=== PATIENT | female | born 1945 | race Caucasian/White ===

== ENCOUNTER → 2017-07-24 | Outpatient (CLI) | payer MEDICARE, BC | LOC: RAD 09:31 | PROVIDERS: ATTEND Internal Medicine | DX: R92.8 Other abnormal and inconclusive findings on diagnostic imaging of breast (principal); R93.8 Abnormal findings on diagnostic imaging of other specified body structures; N63.20 Unspecified lump in the left breast, unspecified quadrant | CPT/HCPCS: 82565 ==

== ENCOUNTER → 2017-08-19 | Day surgery (SDC) | payer MEDICARE, BC ==
[~2017-08-19] MED LIST: LIDOCAINE 2% INJ (20 MG/ML) 20 ML MDV ONE
--- NOTE | 2017-08-22 09:41 | WOMENS IMAGING REPORT ---
EXAM DESCRIPTION: U/S BREAST BX; LEFT DIG DX MAMMO NO CHG COMPLETED DATE/TIME: 08/19/2017 2:35 pm; 08/19/2017 3:00 pm REASON FOR STUDY: UNSPECIFIED LUMP; N63.21; S/P US BX FOR CLIP PLACEMENT N63.20 N63.20 UNSPECIFIED LUMP IN THE LEFT BREAST, UNSPECIFIED QUAD N63.21 UNSPECIFIED LUMP IN THE LEFT BREAST, UPPER OUTER QU AD COMPARISON: Mammograms 06/11/2017, 06/04/2016 [facility] internal medicine TECHNIQUE: The procedure was discussed with the patient and the patient agreed to proceed. The patient was scanned and the area of interest in the 12 o'clock position 10 to 11 cm from the nipp le of the left breast was localized. This correlates with the area of concern on prior imaging studi es. This area was targeted for ultrasound-guided core biopsy. After sterile skin prep and 2.5 mL local lidocaine 1% for skin and deep tissue anesthesia, a 14 gauge coaxial core biopsy needle was used to obtain several cores of tissue from the lesion. Under ultras ound guidance, a ribbon clip was placed in the areas sampled. There were no immediate post-procedure complications. MAMMOGRAM: Post-procedure two view mammogram was acquired in the digital mammogram suite. The clip wa s in the expected location. No significant hematoma. Pathology yields a diagnosis of invasive ductal carcinoma Pathology is concordant. LIMITATIONS: None. FINDINGS: Ultrasound guided breast biopsy as described above. POST PROCEDURE MAMMOGRAMS FOR MARKER PLACEMENT: Yes IMPRESSION: ULTRASOUND-GUIDED CORE BIOPSY OF THE LEFT BREAST YIELDS A DIAGNOSIS OF INVASIVE DUCTAL C ARCINOMA BI-RADS 6 Known biopsy-proven malignancy. Appropriate action should be taken. COMMENT: COMMUNICATION: THESE RESULTS WERE DISCUSSED WITH DR. NOBLE, 08/21/2017 1400 HOURS Patient medication list reviewed: Yes- Quality ID# [id number]:Eligible professional attests to documenting i n the medical record they obtained, updated, or reviewed the patient's current medications. TECHNICAL DOCUMENTATION: JOB ID: [id number] [employer]- All Rights Reserved
== END ==
LOC: WI 12:43
PROVIDERS: ATTEND Surgery
PROC: 0HBT3ZX Excision of Right Breast, Percutaneous Approach, Diagnostic (ICD-10-PCS; principal; 2017-08-19)
DX: C50.912 Malignant neoplasm of unspecified site of left female breast (principal); Z17.0 Estrogen receptor positive status [ER+]
CPT/HCPCS: 88342 ×2; 88341 ×2; 88305 ×2; 19083; J3490

== ENCOUNTER → 2018-06-03 | Outpatient (CLI) | payer MEDICARE, BC ==
--- NOTE | 2018-06-03 15:19 | WOMENS IMAGING REPORT ---
"EXAM DESCRIPTION: 3D DX MAMMO BILAT COMPLETED DATE/TIME: 06/03/2018 12:06 pm REASON FOR STUDY: BILATERAL DIAGNOSTIC MAMMO 3D/C50.919 C50.919 MALIGNANT NEOPLASM OF UNSP SITE OF UNSPECIFIED FEMAL COMPARISON: 08/19/2017, 06/11/2017, 06/04/2016 TECHNIQUE: Standard craniocaudal and mediolateral oblique views of each breast recorded using digita l acquisition and breast tomosynthesis. Additional left breast 90 mediolateral view and exaggerated craniocaudad view LIMITATIONS: None. FINDINGS: RIGHT BREAST MASSES: No suspicious masses. CALCIFICATIONS: No new or suspicious calcifications. ARCHITECTURAL DISTORTION: Postoperative architectural distortion left breast 12 o'clock position with multiple surgical clips post lumpectomy. DEVELOPING DENSITY: None. ASYMMETRY: None noted. OTHER: No other significant findings. LEFT BREAST MASSES: No suspicious masses. CALCIFICATIONS: No new or suspicious calcifications. ARCHITECTURAL DISTORTION: None. DEVELOPING DENSITY: None. ASYMMETRY: None noted. OTHER: Old right breast stereotactic biopsy clip laterally Read with the assistance of CAD: .[facility] - R2 Cenova Version 1.3 .[facility] Imaging - R2 Cenova Version 1.3 .[facility] Imaging - R2 Cenova Version 2.4 .[facility] [place] - R2 Cenova Version 2.4 .[facility] - R2 Head Rose Grower Version 9.2 IMPRESSION: No mammographic or tomosynthesis evidence for malignancy bilaterally. Post therapeutic changes bilaterally. BREAST DENSITY: b. There are scattered areas of fibroglandular density. BIRAD: 2 Benign findings. RECOMMENDATION: RECOMMENDED FOLLOW UP: Please continue yearly bilateral screening mammography/ tomos ynthesis in May 2019 SPECIFIC INTERVENTION/IMAGING/CONSULTATION RECOMMENDED:No additional intervention/ imaging/consultati on needed at this time. COMMUNICATION:The negative/benign results were communicated to the patient. COMMENT: The patient has been notified of the results by letter per SA requirements. Additional no tification policies are in place for contacting patient with suspicious or incomplete findings. Quality ID #[id number]: The [employer] recommends an annual screening mammogram for women aged 40 years or over. This facility utilizes a reminder system to ensure that all patients receive reminder letters, and/or direct phone calls for appointments. This includes reminders for routine scr eening mammograms, diagnostic mammograms, or other Breast Imaging Interventions when appropriate. Th is patient will be placed in the appropriate reminder system. The [employer] (ACR) has developed recommendations for screening MRI of the breast s in certain patient populations, to be used in conjunction with mammography. Breast MRI surveillanc e may be appropriate for women with more than 20% lifetime risk of developing breast cancer as deter mined by genetic testing, significant family history of the disease, or history of mantle radiation f or Hodgkins Disease. ACR Practice Guidelines 2008. DBT Technology DBT is a type of tomographic mammography. With conventional mammography, overlapping breast tissue ma y make lesions difficult to detect, even with good compression. DBT uses an x-ray tube that rotates a round the breast, taking images at different angles. These images are then combined to create thin sl ices of the breast that the radiologist can view as a 3D reconstruction. The Cubito unit can perform full-field digital mammograms (2D imaging); or DBT (3D imaging); or both, in a combination mode that quickly performs both the mammogram and the tomosynthesis scan while the breast is still compressed. PQRS 6045F: Fluoroscopic imaging is not utilized for breast tomosynthesis. TECHNICAL DOCUMENTATION: FINDING NUMBER: (1) ASSESSMENT: (1) JOB ID: [id number] [employer] | [employer]- All Rights Reserved Reading location - IP/workstation name: [email or web address]"
== END ==
LOC: WI 11:16
PROVIDERS: ATTEND Surgery
DX: C50.912 Malignant neoplasm of unspecified site of left female breast (principal)
CPT/HCPCS: 77066; G0279; 77062

== ENCOUNTER → 2018-07-10 | Outpatient (CLI) | payer MEDICARE, BC ==
--- NOTE | 2018-07-10 11:15 | WOMENS IMAGING REPORT ---
EXAM DESCRIPTION: BONE DENSITY HIP/SPINE COMPLETED DATE/TIME: 07/10/2018 10:34 am REASON FOR STUDY: M81.0 M81.0 AGE-RELATED OSTEOPOROSIS W/O CURRENT PATHOLOGICAL FRAC COMPARISON: None. TECHNIQUE: Dual-Energy X-ray Absorptiometry (DEXA) of the AP Spine and Hip. LIMITATIONS: None. FINDINGS: LUMBAR SPINE: The bone mineral density (BMD) measured from L1-L4 in the AP projection correlates with a T-score of -0.4, which is normal as defined by the World Health Organization. HIP: The bone mineral density (BMD) measured in the left hip correlates with a T-score of -2.1, which is o steopenia as defined by the World Health Organization. IMPRESSION: 1. LUMBAR SPINE: NORMAL. 2. HIP: OSTEOPENIA. COMMENT: The World Health Organization defines low BMD as follows: T-score: Normal: Greater than -1.0 Osteopenia: Between -1.0 and -2.5 Osteoporosis: Less than -2.5 without fractures Established osteoporosis: Less than -2.5 with fractures In general, you may wish to consider: Diagnosis Treatment Follow-up DEXA Normal BMD Prevention 2-3 years Osteopenia Prevention/Therapy 1-2 years Osteoporosis Therapy Yearly TECHNICAL DOCUMENTATION: JOB ID: [id number] [employer]- All Rights Reserved Reading location - IP/workstation name: [email or web address]
== END ==
LOC: WI 10:40
PROVIDERS: ATTEND Internal Medicine Hematology & Oncology
DX: M81.0 Age-related osteoporosis without current pathological fracture (principal)
CPT/HCPCS: 77080

== ENCOUNTER → 2018-12-08 | Outpatient (CLI) | payer MEDICARE, BC ==
--- NOTE | 2018-12-08 10:19 | WOMENS IMAGING REPORT ---
EXAM DESCRIPTION: U/S ABDOMEN LIMITED COMPLETED DATE/TIME: 12/08/2018 10:07 am REASON FOR STUDY: K80.20 CALCULUS OF GALLBLADDER WITHOUT CHOLECYSTITIS, R10.11 RIGHT UPPER QU K80.20 CALCULUS OF GALLBLADDER W/O CHOLECYSTITIS W/O OBSTRUC R10.11 RIGHT UPPER QUADRANT PAIN COMPARISON: None. TECHNIQUE: Dynamic and static grayscale images acquired of the abdomen and recorded on PACS. Additio nal selected color Doppler and spectral images recorded. LIMITATIONS: Limited by body habitus. FINDINGS: PANCREAS: The head and body of the pancreas are of normal echogenicity. The tail is obsc ured by overlying bowel gas. LIVER: Fatty liver. The liver measures 20.0 cm in length, hepatomegaly. LIVER VASCULATURE: Normal directional flow of the main portal vein. Suboptimal visualization of the hepatic veins due to overlying bowel gas. GALLBLADDER: Gallstone. The gallbladder wall measures 2.3 mm, normal wall thickness. No pericholecy stic fluid. ULTRASOUND-DETECTED PANG'S SIGN: Negative. INTRAHEPATIC DUCTS AND COMMON DUCT: CBD measures 3.7 mm in diameter, normal. The intrahepatic ducts normal caliber. No filling defects. INFERIOR VENA CAVA: Normal flow. AORTA: Suboptimal visualization due to overlying bowel gas. RIGHT KIDNEY: The right kidney measures 11.3 x 5.0 x 5.0 cm, normal size. Normal echogenicity. A 9 mm x 9 mm cyst. No hydronephrosis. No calcifications. PERITONEAL AND RIGHT PLEURAL SPACE: No ascites or effusions. OTHER: No other significant findings. IMPRESSION: 1. Fatty liver. Hepatomegaly. 2. Suboptimal visualization of the pancreatic tail, hepatic veins and abdominal aorta due to overlyi ng bowel gas. 3. Gallstone. TECHNICAL DOCUMENTATION: JOB ID: [id number]- All Rights Reserved Reading location - IP/workstation name: [email or web address]
== END ==
LOC: WI 08:59
PROVIDERS: ATTEND Internal Medicine
DX: K80.20 Calculus of gallbladder without cholecystitis without obstruction (principal); R10.11 Right upper quadrant pain
CPT/HCPCS: 76705

== ENCOUNTER 2019-05-21 11:45 | Inpatient (IN) | payer MEDICARE, BC ==
[2019-05-21] MEDS ORDERED: DILTIAZEM HCL INJ 25 MG/5 ML VIAL IV ONE (12:04)
--- NOTE | 2019-05-21 12:04 | ER Document Report ---
ED Medical Screen (RME) - General Chief Complaint: Breathing Difficulty Stated Complaint: DIFFICULTY BREATHING/RAPID HEART RATE Time Seen by Provider: 05/21/19 11:47 Primary Care Provider: MANNY HERNANDEZ MD [Primary Care Provider] - Follow up as needed TRAVEL OUTSIDE OF THE [place] IN LAST 30 DAYS: No - HPI Notes: 05/21/19 73-year-old female to the emergency department with complaints of atrial fib and shortness of breath. She states she has been having progressively worsening shortness of breath for the past several weeks. She saw her optical glass silverer today and was found to be in atrial fibrillation rapid ventricular rate. Today in the emergency department in triage she had a heart rate of 135 and an EKG does show atrial fibrillation RVR. She denies any chest pain, fevers, chills. She states that she is feeling a little nervous but otherwise denies any other symptoms. Performed a brief medical screening exam on patient. Have gone ahead and ordered labs, imaging, medications for her. She will need to have further evaluation and management by main side ER provider. Advised Dr. Bill of order of 20 mg IV diltiazem push and then infusion of 10 mg of Cardizem to be started. - Related Data Allergies/Adverse Reactions: amoxicillin trihydrate [From Augmentin] Allergy (Unknown, Verified 05/21/19 12:00) Potassium Clavulanate * [From Augmentin] Allergy (Unknown, Verified 05/21/19 12:00) Past Medical History - Past Medical History Cardiac Medical History: Reports: Hx Hypertension Endocrine Medical History: Reports: Hx Diabetes Mellitus Type 2 Past Surgical History: Reports: Hx Appendectomy, Hx Hysterectomy - Immunizations Hx Diphtheria, Pertussis, Tetanus Vaccination: Yes Doctor's Discharge - Discharge Referrals: MANNY HERNANDEZ MD [Primary Care Provider] - Follow up as needed
[2019-05-21 12:37] LABS: ABSOLUTE EOSINOPHILS # (AUTO) 0.1 10^3/uL (0.0-0.6); ABSOLUTE MONOCYTES (AUTO) 0.5 10^3/uL (0.1-1.4); ABSOLUTE NEUT (AUTO) 3.5 10^3/uL (1.7-8.2); BASOPHILS % (AUTO) 0.8 % (0-2); EOSINOPHILS % (AUTO) 1.4 % (0-6); HEMATOCRIT 44.3 % (36.0-47.0); HEMOGLOBIN 14.6 g/dL (12.0-15.5); LYMPHOCYTES % (AUTO) 19.3 % (13-45); MEAN CORPUSCULAR HEMOGLOBIN 28.8 pg (27.0-33.4); MEAN CORPUSCULAR VOLUME 87 fl (80-97); MONOCYTES % (AUTO) 10.5 % (3-13); PLATELET COUNT 142 10^3/uL (150-450); RED BLOOD COUNT 5.09 10^6/uL (3.72-5.28); RED CELL DISTRIBUTION WIDTH 13.8 % (11.5-14.0); TOTAL CELLS COUNTED % (AUTO) 100 %; WHITE BLOOD COUNT 5.1 10^3/uL (4.0-10.5)
[2019-05-21] MEDS: DILTIAZEM HCL/D5W 125 MG/125 ML RTUINJ IV PRN (12:39)
--- NOTE | 2019-05-21 12:41 | ER Document Report ---
ED Respiratory Problem - General Chief Complaint: New Onset A-Fib Stated Complaint: DIFFICULTY BREATHING/RAPID HEART RATE Time Seen by Provider: 05/21/19 11:47 Notes: Patient is a 73-year-old female presents to the emergency department for shor tness of breath. Patient voices she has had shortness of breath for the last month. States is more so when she exerts herself. Patient states on Saturday she did go to her primary care provider. Her primary care provider told her that she may have an irregular heartbeat and she should follow-up with cardiology. States she went to her appeals court associate justice Dr. Puente this morning. States she was undergoing an echocardiogram Dr. Smith selected and told her to present to the emergency room. Patient voices no chest pain, pressure, heaviness. States She just feels short of breath. Patient does wear CPAP at night. Past medical history: Hypertension, diabetes, hyperlipidemia Medications: Losartan, Januvia, glyburide, allopurinol, atenolol, Lasix, metformin, aspirin, magnesium Allergies: Augmentin TRAVEL OUTSIDE OF THE [place] IN LAST 30 DAYS: No - Related Data Allergies/Adverse Reactions: amoxicillin trihydrate [From Augmentin] Allergy (Unknown, Verified 05/21/19 12:00) Potassium Clavulanate * [From Augmentin] Allergy (Unknown, Verified 05/21/19 12:00) Past Medical History - General Information source: Patient - Social History Smoking Status: Never Smoker Chew tobacco use (# tins/day): No Frequency of alcohol use: None Family History: Reviewed & Not Pertinent Patient has suicidal ideation: No Patient has homicidal ideation: No - Past Medical History Cardiac Medical History: Reports: Hx Hypertension Endocrine Medical History: Reports: Hx Diabetes Mellitus Type 2 Past Surgical History: Reports: Hx Appendectomy, Hx Hysterectomy - Immunizations Hx Diphtheria, Pertussis, Tetanus Vaccination: Yes Review of Systems - Review of Systems Constitutional: denies: Fever EENT: No symptoms reported Cardiovascular: See HPI Respiratory: See HPI Gastrointestinal: No symptoms reported Genitourinary: No symptoms reported Female Genitourinary: No symptoms reported Musculoskeletal: No symptoms reported Skin: No symptoms reported Hematologic/Lymphatic: No symptoms reported Neurological/Psychological: No symptoms reported Physical Exam - Vital signs Vitals: Temp Pulse Resp BP Pulse Ox 98.4 F 135 H 20 150/98 H 95 05/21/19 11:58 05/21/19 11:58 05/21/19 11:58 05/21/19 11:58 05/21/19 11:58 - Notes Notes: GENERAL: Alert, interacts well. No acute distress. HEAD: Normocephalic, atraumatic. EYES: Pupils equal, round, and reactive to light. Extraocular movements intact. ENT: Oral mucosa moist, tongue midline. NECK: Full range of motion. Supple. Trachea midline. LUNGS: Clear to auscultation bilaterally, no wheezes, rales, or rhonchi. No respiratory distress. HEART: Irregularly irregular rate and rhythm. ABDOMEN: Soft, non-tender. Non-distended. Bowel sounds present in all 4 quadrants. EXTREMITIES: Moves all 4 extremities spontaneously. No edema, normal radial and dorsalis pedis pulses bilaterally. No cyanosis. BACK: no cervical, thoracic, lumbar midline tenderness. No saddle anesthesia, normal distal neurovascular exam. NEUROLOGICAL: Alert and oriented x3. Normal speech. cranial nerves II through X II grossly intact PSYCH: Normal affect, normal mood. SKIN: Warm, dry, normal turgor. No rashes or lesions noted. Course - Re-evaluation Re-evalutation: 05/21/19 14:12 After initial Cardizem bolus patient's blood pressure did go down to the 100 systolic. She was started on a 5mg/hr Cardizem drip. Patient's heart rate has now fluctuated back up to 1 teens to 120s. Blood pressure 125/85, Cardizem drip moved up to 10mg/hr. I discussed this case with Inez Arnold, nurse practitioner who will admit the patient to IMCU. Patient voices she overall feels a lot better, denies any respiratory distress at this time. Continues to deny any chest pain or pressure. Repeat EKG continues to show atrial fibrillation rate of 116, QTc 467, no ST segment changes noted. - Vital Signs Vital signs: Temp Pulse Resp BP Pulse Ox 97.5 F 98 24 H 100/72 99 05/21/19 20:26 05/21/19 21:46 05/21/19 20:26 05/21/19 21:46 05/21/19 20:26 - Laboratory Result Diagrams: 05/21/19 12:25 05/21/19 12:25 Laboratory results interpreted by me: 05/21/19 05/21/19 05/21/19 12:25 12:25 12:25 Plt Count 142 L Est GFR (MDRD) Non-Af 59 L Glucose 167 H Calcium 10.5 H AST 65 H NT-Pro-B Natriuret Pep 1730 H Urine Protein Urine Blood Ur Leukocyte Esterase 05/21/19 14:20 Plt Count Est GFR (MDRD) Non-Af Glucose Calcium AST NT-Pro-B Natriuret Pep Urine Protein 100 H Urine Blood LARGE H Ur Leukocyte Esterase MODERATE H Discharge - Discharge Clinical Impression: Atrial fibrillation with RVR Condition: Stable Disposition: ADMITTED INPATIENT Admitting Provider: [place] (Hospitalist) - Inez Arnold NP Unit Admitted: IMCU
[2019-05-21 12:58] LABS: ALBUMIN 4.2 g/dL (3.5-5.0); ALKALINE PHOSPHATASE 78 U/L (38-126); ANION GAP 9 (5-19); ASPARTATE AMINO TRANSFERASE 65 U/L (14-36); BILIRUBIN,DIRECT 0.2 mg/dL (0.0-0.4); BILIRUBIN,TOTAL 0.7 mg/dL (0.2-1.3); BLOOD UREA NITROGEN 20 mg/dL (7-20); CALCIUM 10.5 mg/dL (8.4-10.2); CARBON DIOXIDE 30 mmol/L (22-30); CHLORIDE 103 mmol/L (98-107); GLUCOSE 167 mg/dL (75-110); POTASSIUM 4.5 mmol/L (3.6-5.0)
[2019-05-21 13:10] LABS: NT PRO BNP 1730 pg/mL (<125)
[2019-05-21 13:13] LABS: TROPONIN I < 0.012 ng/mL
--- NOTE | 2019-05-21 13:40 | RADIOLOGY REPORT (SQ) ---
EXAM DESCRIPTION: CHEST SINGLE VIEW COMPLETED DATE/TIME: 05/21/2019 1:16 pm REASON FOR STUDY: SOB COMPARISON: None. EXAM PARAMETERS: NUMBER OF VIEWS: One view. TECHNIQUE: Single frontal radiographic view of the chest acquired. RADIATION DOSE: NA LIMITATIONS: AP portable film in morbidly obese patient FINDINGS: LUNGS AND PLEURA: Minimal right basilar bandlike atelectasis. No fluffy alveolar infiltrates worrisome for pulmonary edema or pneumonia. No pleural effusion. No pneumothorax. MEDIASTINUM AND HILAR STRUCTURES: No masses. Contour normal. HEART AND VASCULAR STRUCTURES: Borderline cardiomegaly BONES: No acute findings. HARDWARE: Surgical clips left breast OTHER: No other significant finding. IMPRESSION: Right basilar atelectasis TECHNICAL DOCUMENTATION: JOB ID: [id number] [employer]- All Rights Reserved Reading location - IP/workstation name: [email or web address]
--- NOTE | 2019-05-21 14:01 | RADIOLOGY REPORT (SQ) ---
EXAM DESCRIPTION: CTA CHEST COMPLETED DATE/TIME: 05/21/2019 1:48 pm REASON FOR STUDY: sob new onset a-fib COMPARISON: None. TECHNIQUE: CT scan of the chest performed using helical scanning technique with dynamic intravenous contrast injection. Images reviewed with lung, soft tissue and bone windows. Reconstructed coronal and sagittal MPR images reviewed. Additional 3 dimensional post-processing performed to develop Maximal Intensity Projection images (CO P). All images stored on PACS. All CT scanners at this facility use dose modulation, iterative reconstruction, and/or weight based d osing when appropriate to reduce radiation dose to as low as reasonably achievable (ALARA). [facility]: Dose Right [facility]: CareDose [facility]: Dose Right [facility]: Teradose 4D [facility]: ID [employer] CONTRAST TYPE AND DOSE: contrast/concentration: Isovue 350.00 mg/ml; Total Contrast Delivered: 71.0 ml; Total Saline Delivered: 70.0 ml Contrast bolus optimized for the pulmonary arteries. Not diagnostic for the aorta. RENAL FUNCTION: GFR > 60. RADIATION DOSE: CT Rad equipment meets quality standard of care and radiation dose reduction techniq ues were employed. CTDIvol: 9.9 - 35.6 mGy. DLP: 1234 mGy-cm. . LIMITATIONS: None. FINDINGS: LUNGS AND PLEURA: There is a bandlike although somewhat nodular opacity of the lingula soren suring approximately 9 mm in short axis (series 3, image 51). No pleural effusions or pleural calcif ications. AORTA AND GREAT VESSELS: No aneurysm. Contrast bolus not optimized for the aorta. HEART: No pericardial effusion. No significant coronary artery calcifications. PULMONARY ARTERIES: No emboli visualized in the main pulmonary arteries or the segmental branches. HILAR AND MEDIASTINAL STRUCTURES: No identified masses or abnormal nodes. HARDWARE: None in the chest. UPPER ABDOMEN: There is a large calculus, partially imaged within the left renal pelvis measuring at least 1.2 cm (series 3, image 121). THYROID AND OTHER SOFT TISSUES: No masses. No adenopathy. BONES: No acute or significant finding. 3D MIPS: Confirm above findings. OTHER: No other significant finding. IMPRESSION: 1. Negative examination for pulmonary embolism. 2. There is a bandlike although somewhat nodular opacity of the lingula measuring approximately 9 mm in short axis (series 3, image 51). This may reflect scarring or atelectasis. Recommend follow-up C T in 3 months to ensure stability or resolution. 3. There is a large calculus, partially imaged within the left renal pelvis measuring at least 1.2 cm (series 3, image 121). COMMENT: Quality ID # [id number]: Final reports with documentation of one or more dose reduction techniques (e.g., Automated exposure control, adjustment of the mA and/or kV according to patient size, use of iterative reconstruction technique) TECHNICAL DOCUMENTATION: JOB ID: [id number] [employer]- All Rights Reserved Reading location - IP/workstation name: [email or web address]
[2019-05-21 14:39] LABS: APPEARANCE,URINE SLIGHTLY-CLOUDY; BILIRUBIN,URINE NEGATIVE (NEGATIVE); GLUCOSE, URINE NEGATIVE (NEGATIVE); KETONES,URINE NEGATIVE (NEGATIVE); LEUKOCYTE ESTERASE,URINE MODERATE (NEGATIVE); NITRITE,URINE NEGATIVE (NEGATIVE); PROTEIN,URINE 100 mg/dL (NEGATIVE); URINE SPECIFIC GRAVITY 1.056; UROBILINOGEN,URINE NEGATIVE mg/dL (<2.0)
[2019-05-21 14:40] LABS: COLOR,URINE DARK YELLOW
[2019-05-21] MEDS ORDERED: ACETAMINOPHEN 325 MG TABLET PO PRN (16:16)
[2019-05-21] MEDS ORDERED: ONDANSETRON HCL INJ/PF 4 MG/2 ML SDV IV PRN (16:16)
[2019-05-21] MEDS ORDERED: MAG HYDROX/AL HYDROX/SIMETH SUSP 30 ML UDCUP PO PRN (16:16)
[2019-05-21] MEDS ORDERED: DILTIAZEM HCL/D5W 125 MG/125 ML RTUINJ IV PRN (16:21)
[2019-05-21] MEDS ORDERED: GLUCAGON,HUMAN RECOMB 1 MG INJ IM PRN (16:23)
[2019-05-21] MEDS ORDERED: DEXTROSE 40% GEL 15 GM TUBE PO PRN ×2 (16:23)
[2019-05-21] MEDS ORDERED: DEXTROSE 50%-WATER 25 GM/50 ML DISP.SYRIN IV PRN ×2 (16:23)
[2019-05-21] MEDS: NORMAL SALINE 1000 ML 1,000 ML IV PRN (16:47)
--- NOTE | 2019-05-21 16:49 | PDOC H&P ---
History of Present Illness Admission Date/PCP: 05/21/19 14:41 MANNY HERNANDEZ MD Patient complains of: dyspnea on exertion History of Present Illness: GRISEL ANDRES is a 73 year old female with a past medical history of hypertension, DM 2, breast cancer, and obesity who presented from Dr. Puente's office for atrial fibrillation with RVR. The patient had recently been referred to Dr. Hernandez for new diagnosis of atrial fibrillation and was at the office today for an echocardiogram when it was found that her heart rate was in the 150s. Evaluation in the emergency department demonstrated tachycardia, A. fib with RVR on EKG, benign laboratory evaluation other than urinary tract infection by urinalysis, and a CTA that was negative for acute findings. Patient was provided a diltiazem bolus and started on a drip with reduction of her heart rate to the 120s. Was then referred to the hospitalist service for admission and management of the above-stated complaints and findings. Past Medical History Cardiac Medical History: Reports: Atrial Fibrillation, Hypertension Endocrine Medical History: Reports: Diabetes Mellitus Type 2, Obesity Malignancy Medical History: Reports: Breast Cancer Psychiatric Medical History: Reports: None Hematology: Reports: None Infectious Medical History: Reports: None Past Surgical History Past Surgical History: Reports: Appendectomy, Hysterectomy Social History Information Source: Patient Lives with: Alone Smoking Status: Never Smoker Electronic Cigarette use?: No Frequency of Alcohol Use: Rare Drugs: None Hx Prescription Drug Abuse: No - Advance Directive Resuscitation Status: Full Code Family History Family History: Reviewed & Not Pertinent Parental Family History Reviewed: Yes Children Family History Reviewed: Yes Sibling(s) Family History Reviewed.: Yes Medication/Allergy Home Medications: Allopurinol [Zyloprim 100 mg Tablet] 200 mg PO DAILY 05/21/19 Anastrozole [Arimidex 1 mg Tablet] 1 mg PO DAILY 05/21/19 Aspirin [Aspirin 325 mg Tablet] 325 mg PO DAILY 05/21/19 Atenolol [Tenormin 50 mg Tablet] 50 mg PO Q12 05/21/19 Cetirizine HCl [Zyrtec 10 mg Tablet] 10 mg PO DAILY 05/21/19 Cholecalciferol (Vitamin D3) [Vitamin D3 2000 unit Tablet] 2,000 unit PO DAILY 05/21/19 Furosemide [Lasix 40 mg Tablet] 40 mg PO DAILY 05/21/19 Glyburide [Diabeta 5 mg Tablet] 5 mg PO DAILY 05/21/19 Losartan Potassium [Cozaar 100 mg Tablet] 100 mg PO DAILY 05/21/19 Magnesium Oxide [Magnesium] 500 mg PO DAILY 05/21/19 Metformin HCl [Metformin HCl ER] 1,000 mg PO DAILY 05/21/19 Multivitamin [Multiple Vitamins] 1 each PO DAILY 05/21/19 Potassium Chloride [Klor-Con 10 Meq Capsule ER] 10 meq PO DAILY 05/21/19 Sitagliptin Phosphate [Januvia] 100 mg PO DAILY 05/21/19 Allergies/Adverse Reactions: amoxicillin trihydrate [From Augmentin] Allergy (Unknown, Verified 05/21/19 12:00) Potassium Clavulanate * [From Augmentin] Allergy (Unknown, Verified 05/21/19 12:00) Review of Systems Constitutional: PRESENT: fatigue. ABSENT: chills, fever(s), headache(s), weight gain, weight loss Eyes: ABSENT: visual disturbances Ears: ABSENT: hearing changes Cardiovascular: PRESENT: dyspnea on exertion, edema. ABSENT: chest pain, orthropnea, palpitations Respiratory: ABSENT: cough, hemoptysis Gastrointestinal: ABSENT: abdominal pain, constipation, diarrhea, hematemesis, hematochezia, nausea, vomiting Genitourinary: ABSENT: dysuria, hematuria Musculoskeletal: ABSENT: joint swelling Integumentary: ABSENT: rash, wounds Neurological: ABSENT: abnormal gait, abnormal speech, confusion, dizziness, focal weakness, syncope Psychiatric: ABSENT: anxiety, depression, homidical ideation, suicidal ideation Endocrine: ABSENT: cold intolerance, heat intolerance, polydipsia, polyuria Hematologic/Lymphatic: ABSENT: easy bleeding, easy bruising Physical Exam Vital Signs: Temp Pulse Resp BP Pulse Ox 98.6 F 133 H 16 124/90 H 100 05/21/19 15:57 05/21/19 15:57 05/21/19 15:57 05/21/19 15:57 05/21/19 15:57 Intake & Output 05/20/19 05/21/19 05/22/19 06:59 06:59 06:59 Intake Total 22 Balance 22 Weight 111 kg General appearance: PRESENT: no acute distress, cooperative, morbidly obese, well-developed, well-nourished Head exam: PRESENT: atraumatic, normocephalic Eye exam: PRESENT: conjunctiva pink, EOMI, PERRLA. ABSENT: scleral icterus Ear exam: PRESENT: normal external ear exam Mouth exam: PRESENT: moist, tongue midline Neck exam: ABSENT: carotid bruit, JVD, lymphadenopathy, thyromegaly Respiratory exam: PRESENT: clear to auscultation aldair, symmetrical, unlabored. ABSENT: rales, rhonchi, wheezes Cardiovascular exam: PRESENT: +S1, +S2. ABSENT: diastolic murmur, rubs, systolic murmur Pulses: PRESENT: normal dorsalis pedis pul Vascular exam: PRESENT: normal capillary refill GI/Abdominal exam: PRESENT: normal bowel sounds, soft. ABSENT: distended, guarding, mass, organolmegaly, rebound, tenderness Rectal exam: PRESENT: deferred Extremities exam: PRESENT: full ROM, +2 edema - pitting, BLE. ABSENT: calf ten derness, clubbing, pedal edema Neurological exam: PRESENT: alert, awake, oriented to person, oriented to place, oriented to time, oriented to situation, CN II-XII grossly intact. ABSENT: motor sensory deficit Psychiatric exam: PRESENT: appropriate affect, normal mood. ABSENT: homicidal ideation, suicidal ideation Skin exam: PRESENT: dry, intact, warm. ABSENT: cyanosis, rash Results Laboratory Results: 05/21/19 12:25 05/21/19 12:25 05/21/19 05/21/19 05/21/19 12:25 12:25 14:20 WBC 5.1 RBC 5.09 Hgb 14.6 Hct 44.3 MCV 87 MCH 28.8 MCHC 33.0 RDW 13.8 Plt Count 142 L Seg Neutrophils % 68.0 Sodium 141.8 Potassium 4.5 Chloride 103 Carbon Dioxide 30 Anion Gap 9 BUN 20 Creatinine 0.93 Est GFR ( Amer) > 60 Glucose 167 H Calcium 10.5 H Magnesium 2.1 Total Bilirubin 0.7 AST 65 H Alkaline Phosphatase 78 Total Protein 7.0 Albumin 4.2 Urine Color DARK YELLOW Urine Appearance SLIGHTLY-CLOUDY Urine pH 6.0 Ur Specific Morris 1.056 Urine Protein 100 H Urine Glucose (UA) NEGATIVE Urine Ketones NEGATIVE Urine Blood LARGE H Urine Nitrite NEGATIVE Ur Leukocyte Esterase MODERATE H Urine WBC (Auto) 58 Urine RBC (Auto) >182 05/21/19 12:25 Troponin I < 0.012 NT-Pro-B Natriuret Pep 1730 H Impressions: Chest X-Ray 05/21/19 11:48 IMPRESSION: Right basilar atelectasis Chest/Abdomen CTA 05/21/19 12:24 IMPRESSION: 1. Negative examination for pulmonary embolism. 2. There is a bandlike although somewhat nodular opacity of the lingula measuring approximately 9 mm in short axis (series 3, image 51). This may reflect scarring or atelectasis. Recommend follow-up CT in 3 months to ensure stability or resolution. 3. There is a large calculus, partially imaged within the left renal pelvis measuring at least 1.2 cm (series 3, image 121). Assessment and Plan - Diagnosis (1) Atrial fibrillation with RVR Is this a current diagnosis for this admission?: Yes Plan: Patient is admitted to [facility] on continuous cardiac telemetry. Continue IV diltiazem gtt; titrate to effect. Discussed chronic anticoagulation; patient interested in Eliquis. Will start 5 mg BID. Continue home dose atenolol. TSH pending. Follow up with cardiology, Dr. Smith, closely following discharge. 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 Hold metformin while admitted. Consistent carb diet. Accu-Cheks before meals and at bedtime with Humalog for sliding scale coverage. Hypoglycemia protocol in place. (3) HTN (hypertension) Is this a current diagnosis for this admission?: Yes Plan: Diltiazem as above. Continue home dose losartan and atenolol. Cardiac diet. (4) Obesities, morbid Is this a current diagnosis for this admission?: Yes Plan: BMI 47.8 Consistent carb/cardiac diet. Dietary discretion and lifestyle modification encouraged. - Time Time Spent with patient: 35 or more minutes Medications reviewed and adjusted accordingly: Yes Anticipated discharge: Home Within: within 24 hours
[2019-05-21] MEDS: APIXABAN 5 MG TABLET PO SCH (17:41)
[2019-05-21] MEDS: CEFTRIAXONE 1 GM/D5W RTU 1 GM/50 ML RTUPB IV SCH (17:43)
--- NOTE | 2019-05-21 17:55 | EKG REPORT ---
SEVERITY:- ABNORMAL ECG - ATRIAL FIBRILLATION VENTRICULAR PREMATURE COMPLEX MARKEDLY POSTERIOR QRS AXIS LOW VOLTAGE IN FRONTAL LEADS CONSIDER INFERIOR INFARCT : Confirmed by: Raman Nelson MD 21-May-2019 17:54:27
--- NOTE | 2019-05-21 17:56 | EKG REPORT ---
SEVERITY:- ABNORMAL ECG - ATRIAL FIBRILLATION LEFT AXIS DEVIATION LOW VOLTAGE IN FRONTAL LEADS CONSIDER OLD INFERIOR OR. : Confirmed by: Raman Nelson MD 21-May-2019 17:55:26
[2019-05-21] MEDS: INSULIN LISPRO 100 UNIT/ML 3 ML VIAL SUBCUT SCH (21:32)
[2019-05-21] MEDS: ATENOLOL 50 MG TABLET PO SCH (21:43)
[2019-05-22] MEDS: DILTIAZEM HCL/D5W 125 MG/125 ML RTUINJ IV PRN (01:38)
[2019-05-22] MEDS: NORMAL SALINE 1000 ML 1,000 ML IV PRN (02:49)
[2019-05-22] MEDS: ALPRAZOLAM 0.25 MG TABLET PO PRN (02:55)
[2019-05-22 06:40] LABS: ABSOLUTE EOSINOPHILS # (AUTO) 0.1 10^3/uL (0.0-0.6); ABSOLUTE LYMPHOCYTES (AUTO) 1.2 10^3/uL (0.5-4.7); ABSOLUTE MONOCYTES (AUTO) 0.6 10^3/uL (0.1-1.4); BASOPHILS % (AUTO) 0.7 % (0-2); EOSINOPHILS % (AUTO) 1.9 % (0-6); HEMATOCRIT 44.5 % (36.0-47.0); HEMOGLOBIN 14.8 g/dL (12.0-15.5); LYMPHOCYTES % (AUTO) 20.1 % (13-45); MEAN CORPUSCULAR HEMOGLOBIN 28.9 pg (27.0-33.4); MEAN CORPUSCULAR HGB CONC 33.2 g/dL (32.0-36.0); MEAN CORPUSCULAR VOLUME 87 fl (80-97); MONOCYTES % (AUTO) 10.2 % (3-13); PLATELET COUNT 134 10^3/uL (150-450); SEGMENTED NEUTROPHILS % (AUTO) 67.1 % (42-78); TOTAL CELLS COUNTED % (AUTO) 100 %
[2019-05-22 06:53] LABS: ANION GAP 9 (5-19); BLOOD UREA NITROGEN 20 mg/dL (7-20); CALCIUM 9.4 mg/dL (8.4-10.2); CARBON DIOXIDE 26 mmol/L (22-30); CHLORIDE 107 mmol/L (98-107); GLUCOSE 180 mg/dL (75-110); POTASSIUM 5.2 mmol/L (3.6-5.0)
[2019-05-22] MEDS: ATENOLOL 50 MG TABLET PO SCH ×2 (09:38→21:19)
[2019-05-22] MEDS: ALLOPURINOL 100 MG TABLET PO SCH (09:38)
[2019-05-22] MEDS: SITAGLIPTIN PHOSPHATE 50 MG TABLET PO SCH (09:40)
[2019-05-22] MEDS: MULTIVITAMIN TABLET PO SCH (09:40)
[2019-05-22] MEDS: CETIRIZINE 10 MG TABLET PO SCH (09:40)
[2019-05-22] MEDS: DILTIAZEM HCL 60 MG TABLET PO SCH ×4 (09:40→23:37)
[2019-05-22] MEDS: APIXABAN 5 MG TABLET PO SCH ×2 (09:41→17:45)
[2019-05-22] MEDS: LOSARTAN POTASSIUM 50 MG TABLET PO SCH (09:41)
[2019-05-22] MEDS: CEFTRIAXONE 1 GM/D5W RTU 1 GM/50 ML RTUPB IV SCH (09:41)
[2019-05-22] MEDS: FUROSEMIDE 40 MG TABLET PO SCH (09:41)
[2019-05-22] MEDS: ANASTROZOLE 1 MG TABLET PO SCH (09:43)
[2019-05-22] MEDS: INSULIN LISPRO 100 UNIT/ML 3 ML VIAL SUBCUT SCH ×4 (09:44→22:15)
[2019-05-22] MEDS: POTASSIUM CHLORIDE 10 MEQ CAPSULE.ER PO SCH (14:56)
--- NOTE | 2019-05-22 22:53 | PDOC PROGRESS REPORT ---
Subjective Progress Note for:: 05/22/19 Subjective:: GRISEL ANDRES is a 73 year old female with a past medical history of hypertension, DM 2, breast cancer, and obesity who was admitted 05/21/2019 for atrial fibrillation with RVR. The patient was seen on morning rounds. She is found sitting up to the recliner, comfortably, on supplemental oxygen via nasal cannula. She reports that she is feeling better this morning. She does complain of an incident last night where upon lying down that she can feel a racing and pounding heartbeat. It improves when she moved back to the recliner. However she continues to have anxiety until PRN Xanax was administered, after which she slept well throughout the night. She does request a sleeping aid for this evening. She does continue to have dyspnea on exertion, is unable to qualify whether or not this is improved as she has not yet been ambulatory this morning. She is encouraged to walk in the hallways this afternoon. She denies fever, chills, chest pain, cough, abdominal pain, nausea vomiting diarrhea. She has no other questions or concerns at this time. No concerns per nursing. Reason For Visit: A. FIB RVR Physical Exam Vital Signs: Temp Pulse Resp BP Pulse Ox 98.0 F 92 32 H 131/66 H 99 05/22/19 20:38 05/22/19 20:38 05/22/19 20:38 05/22/19 20:38 05/22/19 20:38 Intake & Output 05/21/19 05/22/19 05/23/19 06:59 06:59 06:59 Intake Total 1292 720 Output Total 100 900 Balance 1192 -180 Weight 111 kg General appearance: PRESENT: no acute distress, cooperative, morbidly obese, well-developed, well-nourished Head exam: PRESENT: atraumatic, normocephalic Eye exam: PRESENT: conjunctiva pink, EOMI, PERRLA. ABSENT: scleral icterus Ear exam: PRESENT: normal external ear exam Mouth exam: PRESENT: moist, tongue midline Respiratory exam: PRESENT: clear to auscultation aldair, symmetrical, unlabored, other - Supplemental oxygen via nasal cannula. ABSENT: rales, rhonchi, wheezes Cardiovascular exam: PRESENT: irregular rhythm - Rate controlled; 80-110, +S1, +S2. ABSENT: diastolic murmur, rubs, systolic murmur Pulses: PRESENT: normal dorsalis pedis pul Vascular exam: PRESENT: normal capillary refill Rectal exam: PRESENT: deferred Extremities exam: PRESENT: full ROM. ABSENT: calf tenderness, clubbing, pedal edema Musculoskeletal exam: PRESENT: ambulatory Neurological exam: PRESENT: alert, awake, oriented to person, oriented to place, oriented to time, oriented to situation, CN II-XII grossly intact. ABSENT: motor sensory deficit Psychiatric exam: PRESENT: appropriate affect, normal mood. ABSENT: homicidal ideation, suicidal ideation Skin exam: PRESENT: dry, intact, warm. ABSENT: cyanosis, rash Results Laboratory Results: 05/22/19 06:03 05/22/19 06:03 05/22/19 05/22/19 05/22/19 06:03 06:03 06:03 WBC 6.0 RBC 5.10 Hgb 14.8 Hct 44.5 MCV 87 MCH 28.9 MCHC 33.2 RDW 14.0 Plt Count 134 L Seg Neutrophils % 67.1 Sodium 141.7 Potassium 5.2 H Chloride 107 Carbon Dioxide 26 Anion Gap 9 BUN 20 Creatinine 0.86 Est GFR ( Amer) > 60 Glucose 180 H Calcium 9.4 TSH 2.46 05/21/19 14:20 Clean Catch Midstream Urine Culture - Final Mixed Urogenital Mandie 05/21/19 12:25 Troponin I < 0.012 NT-Pro-B Natriuret Pep 1730 H Impressions: Chest X-Ray 05/21/19 11:48 IMPRESSION: Right basilar atelectasis Chest/Abdomen CTA 05/21/19 12:24 IMPRESSION: 1. Negative examination for pulmonary embolism. 2. There is a bandlike although somewhat nodular opacity of the lingula measuring approximately 9 mm in short axis (series 3, image 51). This may reflect scarring or atelectasis. Recommend follow-up CT in 3 months to ensure stability or resolution. 3. There is a large calculus, partially imaged within the left renal pelvis measuring at least 1.2 cm (series 3, image 121). Assessment and Plan - Diagnosis (1) Atrial fibrillation with RVR Is this a current diagnosis for this admission?: Yes Plan: Patient is admitted to [facility] on continuous cardiac telemetry. Patient is transition to oral diltiazem today; 60 mg p.o. every 6 hours. Discussed chronic anticoagulation; patient interested in Eliquis. Continue 5 mg BID. Continue home dose atenolol. TSH is normal. Follow up with cardiology, Dr. Smith, closely following discharge. (2) Diabetes Qualifiers: Diabetes mellitus type: type 2 Diabetes mellitus shelter insulin use: without shelter use Diabetes mellitus complication status: without complication Qualified Code(s): E11.9 - Type 2 diabetes mellitus without complications Is this a current diagnosis for this admission?: Yes Plan: We will continue the patient's home dose glipizide and Januvia. Hold metformin while admitted. Consistent carb diet. Accu-Cheks before meals and at bedtime with Humalog for sliding scale coverage. Hypoglycemia protocol in place. (3) HTN (hypertension) Is this a current diagnosis for this admission?: Yes Plan: Slightly elevated blood pressures today; overall acceptable. Diltiazem as above. Continue home dose losartan and atenolol. Cardiac diet. (4) Obesities, morbid Is this a current diagnosis for this admission?: Yes Plan: BMI 47.8 Consistent carb/cardiac diet. Dietary discretion and lifestyle modification encouraged. - Time Time Spent with patient: 25-34 minutes Medications reviewed and adjusted accordingly: Yes Anticipated discharge: Home Within: within 24 hours - Patient remains rate controlled while on oral medication.
[2019-05-22] MEDS ORDERED: TEMAZEPAM 7.5 MG CAPSULE PO ONE (23:15)
[2019-05-23] MEDS: DILTIAZEM HCL 60 MG TABLET PO SCH (05:17)
[2019-05-23 06:03] LABS: ANION GAP 12 (5-19); BLOOD UREA NITROGEN 24 mg/dL (7-20); CALCIUM 9.6 mg/dL (8.4-10.2); CARBON DIOXIDE 24 mmol/L (22-30); CHLORIDE 108 mmol/L (98-107); GLUCOSE 214 mg/dL (75-110); POTASSIUM 4.7 mmol/L (3.6-5.0)
[2019-05-23] MEDS: ANASTROZOLE 1 MG TABLET PO SCH (09:41)
[2019-05-23] MEDS: POTASSIUM CHLORIDE 10 MEQ CAPSULE.ER PO SCH (09:41)
[2019-05-23] MEDS: CEFTRIAXONE 1 GM/D5W RTU 1 GM/50 ML RTUPB IV SCH (09:41)
[2019-05-23] MEDS: ALLOPURINOL 100 MG TABLET PO SCH (09:42)
[2019-05-23] MEDS: SITAGLIPTIN PHOSPHATE 50 MG TABLET PO SCH (09:42)
[2019-05-23] MEDS: ASPIRIN 81 MG TABLET, CHEWABLE PO SCH (09:42)
[2019-05-23] MEDS: FUROSEMIDE 40 MG TABLET PO SCH (09:42)
[2019-05-23] MEDS: APIXABAN 5 MG TABLET PO SCH ×2 (09:42→17:40)
[2019-05-23] MEDS: LOSARTAN POTASSIUM 50 MG TABLET PO SCH (09:42)
[2019-05-23] MEDS: CETIRIZINE 10 MG TABLET PO SCH (09:42)
[2019-05-23] MEDS: MULTIVITAMIN TABLET PO SCH (09:42)
[2019-05-23] MEDS: INSULIN LISPRO 100 UNIT/ML 3 ML VIAL SUBCUT SCH ×4 (09:42→21:11)
[2019-05-23] MEDS: ATENOLOL 50 MG TABLET PO SCH ×2 (09:42→21:12)
[2019-05-23] MEDS: DILTIAZEM HCL 90 MG TABLET PO SCH ×2 (13:06→17:40)
[2019-05-23] MEDS: DIGOXIN INJ 0.5 MG/2 ML AMPULE ONE ×2 (15:49→15:51)
[2019-05-23] MEDS ORDERED: DIGOXIN INJ 0.5 MG/2 ML AMPULE IV ONE (16:08)
--- NOTE | 2019-05-23 16:19 | PDOC PROGRESS REPORT ---
Subjective Progress Note for:: 05/23/19 Subjective:: GRISEL ANDRES is a 73 year old female with a past medical history of hypertension, DM 2, breast cancer, and obesity who was admitted 05/21/2019 for atrial fibrillation with RVR. The patient was seen on morning rounds. She is found sitting up to the recliner, comfortably, on supplemental oxygen via nasal cannula. She reports that she is feeling better this morning; however, continues to have dyspnea while at rest. She denies fever, chills, chest pain, cough, abdominal pain, nausea vomiting diarrhea. She has no other questions or concerns at this time. Notified by nursing this afternoon that the patient's heart rate has gradually drifted upward to 130s. Reason For Visit: Renate. NEHEMIAS RVR Physical Exam Vital Signs: Temp Pulse Resp BP Pulse Ox 97.7 F 112 H 21 H 122/87 H 100 05/23/19 12:04 05/23/19 12:04 05/23/19 12:04 05/23/19 12:04 05/23/19 12:04 Intake & Output 05/22/19 05/23/19 05/24/19 06:59 06:59 06:59 Intake Total 1292 820 240 Output Total 100 900 Balance 1192 -80 240 Weight 111 kg 110.2 kg General appearance: PRESENT: no acute distress, cooperative, morbidly obese, well-developed, well-nourished Head exam: PRESENT: atraumatic, normocephalic Eye exam: PRESENT: conjunctiva pink, EOMI, PERRLA. ABSENT: scleral icterus Ear exam: PRESENT: normal external ear exam Mouth exam: PRESENT: moist, tongue midline Respiratory exam: PRESENT: clear to auscultation aldair, symmetrical, unlabored. ABSENT: rales, rhonchi, wheezes Cardiovascular exam: PRESENT: irregular rhythm, +S1, +S2, tachycardia. ABSENT: diastolic murmur, rubs, systolic murmur Vascular exam: PRESENT: normal capillary refill Rectal exam: PRESENT: deferred Extremities exam: PRESENT: full ROM. ABSENT: calf tenderness, clubbing, pedal edema Neurological exam: PRESENT: alert, awake, oriented to person, oriented to place, oriented to time, oriented to situation, CN II-XII grossly intact, other - Slightly forgetful and repetitive today.. ABSENT: motor sensory deficit Psychiatric exam: PRESENT: appropriate affect, normal mood. ABSENT: homicidal ideation, suicidal ideation Skin exam: PRESENT: dry, intact, warm. ABSENT: cyanosis, rash Results Laboratory Results: 05/22/19 06:03 05/23/19 05:11 05/23/19 05:11 Sodium 143.6 Potassium 4.7 Chloride 108 H Carbon Dioxide 24 Anion Gap 12 BUN 24 H Creatinine 0.96 Est GFR ( Amer) > 60 Glucose 214 H Calcium 9.6 05/21/19 14:20 Clean Catch Midstream Urine Culture - Final Mixed Urogenital Mandie 05/21/19 12:25 Troponin I < 0.012 NT-Pro-B Natriuret Pep 1730 H Impressions: Chest X-Ray 05/21/19 11:48 IMPRESSION: Right basilar atelectasis Chest/Abdomen CTA 05/21/19 12:24 IMPRESSION: 1. Negative examination for pulmonary embolism. 2. There is a bandlike although somewhat nodular opacity of the lingula measuring approximately 9 mm in short axis (series 3, image 51). This may reflect scarring or atelectasis. Recommend follow-up CT in 3 months to ensure stability or resolution. 3. There is a large calculus, partially imaged within the left renal pelvis measuring at least 1.2 cm (series 3, image 121). Assessment and Plan - Diagnosis (1) Atrial fibrillation with RVR Is this a current diagnosis for this admission?: Yes Plan: Patient is admitted to [facility] on continuous cardiac telemetry. Have increased to diltiazem 90 mg p.o. every 6 hours. Diltiazem 0.125 mg IV push today with improvement in heart rate from 130s to 103. Discussed with Dr. Jones. Will start oral digoxin tomorrow. Continue Eliquis 5 mg twice daily.. Continue home dose atenolol. TSH is normal. Follow up with cardiology, Dr. Smith, closely following discharge. 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 Resume metformin today. Consistent carb diet. Accu-Cheks before meals and at bedtime with Humalog for sliding scale coverage. Hypoglycemia protocol in place. (3) HTN (hypertension) Is this a current diagnosis for this admission?: Yes Plan: Blood pressures are decreased after increase of diltiazem. 110s over 70s today. Diltiazem as above. Continue home dose losartan and atenolol. Cardiac diet. (4) Obesities, morbid Is this a current diagnosis for this admission?: Yes Plan: BMI 47.8 Consistent carb/cardiac diet. Dietary discretion and lifestyle modification encouraged. - Time Time Spent with patient: 25-34 minutes Medications reviewed and adjusted accordingly: Yes Anticipated discharge: Home Within: within 24 hours - if maintains rate control
[2019-05-23] MEDS ORDERED: TEMAZEPAM 7.5 MG CAPSULE PO PRN (16:20)
[2019-05-23] MEDS: METFORMIN HCL 500 MG TABLET PO SCH (17:40)
[2019-05-23] MEDS ORDERED: DILTIAZEM HCL 90 MG TABLET PO SCH (18:00)
[2019-05-23] MEDS: NORMAL SALINE 1000 ML 1,000 ML IV PRN (20:26)
[2019-05-23] MEDS: ALPRAZOLAM 0.25 MG TABLET PO PRN (20:31)
[2019-05-23] MEDS: CIPROFLOXACIN HCL 500 MG TABLET PO SCH (21:12)
[2019-05-24] MEDS: DILTIAZEM HCL 90 MG TABLET PO SCH ×2 (00:27→05:24)
[2019-05-24] MEDS: NORMAL SALINE 1000 ML 1,000 ML IV PRN (05:55)
[2019-05-24] MEDS: INSULIN LISPRO 100 UNIT/ML 3 ML VIAL SUBCUT SCH ×2 (08:02→12:03)
[2019-05-24] MEDS: METFORMIN HCL 500 MG TABLET PO SCH (08:02)
[2019-05-24] MEDS: MULTIVITAMIN TABLET PO SCH (09:36)
[2019-05-24] MEDS: ASPIRIN 81 MG TABLET, CHEWABLE PO SCH (09:36)
[2019-05-24] MEDS: CETIRIZINE 10 MG TABLET PO SCH (09:36)
[2019-05-24] MEDS: APIXABAN 5 MG TABLET PO SCH (09:36)
[2019-05-24] MEDS: SITAGLIPTIN PHOSPHATE 50 MG TABLET PO SCH (09:36)
[2019-05-24] MEDS: POTASSIUM CHLORIDE 10 MEQ CAPSULE.ER PO SCH (09:36)
[2019-05-24] MEDS: ATENOLOL 50 MG TABLET PO SCH (09:37)
[2019-05-24] MEDS: FUROSEMIDE 40 MG TABLET PO SCH (09:37)
[2019-05-24] MEDS: ALLOPURINOL 100 MG TABLET PO SCH (09:37)
[2019-05-24] MEDS: LOSARTAN POTASSIUM 50 MG TABLET PO SCH (09:38)
[2019-05-24] MEDS: ANASTROZOLE 1 MG TABLET PO SCH (09:38)
[2019-05-24] MEDS: CIPROFLOXACIN HCL 500 MG TABLET PO SCH (09:39)
[2019-05-24] MEDS ORDERED: (PENDING PHARMACY ID) (Metformin Hcl [Metformin Hcl Er] 1,000 MG) PO SCH (10:00)
[2019-05-24] MEDS ORDERED: MAGNESIUM OXIDE 400 MG TABLET PO SCH (10:00)
[2019-05-24] MEDS ORDERED: GLYBURIDE 5 MG TABLET PO SCH (10:00)
[2019-05-24] MEDS ORDERED: DILTIAZEM HCL 180 MG CAPSULE.CR PO SCH (10:00)
[2019-05-24] MEDS ORDERED: (PENDING PHARMACY ID) (Magnesium Oxide [Magnesium] 500 MG) PO SCH (10:00)
[2019-05-24] MEDS ORDERED: DIGOXIN 0.125 MG TABLET PO SCH (10:00)
[2019-05-24 12:27] VITALS: BP 120/80
--- NOTE | 2019-05-24 13:06 | PDOC DISCHARGE SUMMARY ---
Impression - Admit/DC Date/PCP Admission Date/Primary Care Provider: 05/23/19 15:00 MANNY HERNANDEZ MD Discharge Date: 05/24/19 - Discharge Diagnosis (1) Atrial fibrillation with RVR Is this a current diagnosis for this admission?: Yes (2) Diabetes Is this a current diagnosis for this admission?: Yes (3) HTN (hypertension) Is this a current diagnosis for this admission?: Yes (4) Obesities, morbid Is this a current diagnosis for this admission?: Yes (5) Diastolic CHF Is this a current diagnosis for this admission?: Yes - Additional Information Resuscitation Status: Full Code Discharge Diet: Cardiac, Diabetic Discharge Activity: Activity As Tolerated, Balance Activity w/Rest, Slowly Increase Activity, Weigh Daily Referrals: MANNY HERNANDEZ MD [Primary Care Provider] - 06/25/19 10:30 am (They will call the patient if they can make the appointment any ealier. WADDELL.) JT SMITH MD [VIA [facility]] - Prescriptions: Aspirin [Aspirin 81 mg Chewable Tablet] 81 mg PO DAILY #90 tab.chew Diltiazem HCl [Cardizem Cd 180 mg Capsule] 180 mg PO Q12 #60 capsule.cr Ciprofloxacin HCl [Cipro 500 mg Tablet] 500 mg PO Q12 #10 tablet Apixaban [Eliquis 5 mg Tablet] 5 mg PO BID #60 tablet Digoxin [Lanoxin 0.125 mg Tablet] 0.125 mg PO DAILY #30 tablet Home Medications: Allopurinol [Zyloprim 100 mg Tablet] 200 mg PO DAILY 05/21/19 Anastrozole [Arimidex 1 mg Tablet] 1 mg PO DAILY 05/21/19 Atenolol [Tenormin 50 mg Tablet] 50 mg PO Q12 05/21/19 Cetirizine HCl [Zyrtec 10 mg Tablet] 10 mg PO DAILY 05/21/19 Cholecalciferol (Vitamin D3) [Vitamin D3 2000 unit Tablet] 2,000 unit PO DAILY 05/21/19 Furosemide [Lasix 40 mg Tablet] 40 mg PO DAILY 05/21/19 Glyburide [Diabeta 5 mg Tablet] 5 mg PO DAILY 05/21/19 Losartan Potassium [Cozaar 100 mg Tablet] 100 mg PO DAILY 05/21/19 Magnesium Oxide [Magnesium] 500 mg PO DAILY 05/21/19 Metformin HCl [Metformin HCl ER] 1,000 mg PO DAILY 05/21/19 Multivitamin [Multiple Vitamins] 1 each PO DAILY 05/21/19 Potassium Chloride [Klor-Con 10 Meq Capsule ER] 10 meq PO DAILY 05/21/19 Sitagliptin Phosphate [Januvia] 100 mg PO DAILY 05/21/19 Acetaminophen [Tylenol 325 mg Tablet] 650 mg PO Q4HP PRN tablet 05/24/19 Apixaban [Eliquis 5 mg Tablet] 5 mg PO BID #60 tablet 05/24/19 Aspirin [Aspirin 81 mg Chewable Tablet] 81 mg PO DAILY #90 tab.chew 05/24/19 Ciprofloxacin HCl [Cipro 500 mg Tablet] 500 mg PO Q12 #10 tablet 05/24/19 Digoxin [Lanoxin 0.125 mg Tablet] 0.125 mg PO DAILY #30 tablet 05/24/19 Diltiazem HCl [Cardizem Cd 180 mg Capsule] 180 mg PO Q12 #60 capsule.cr 05/24/19 History of Present Illiness History of Present Illness: GRISEL ANDRES is a 73 year old female with a past medical history of hypertension, DM 2, breast cancer, and obesity who presented from Dr. Puente's office for atrial fibrillation with RVR. The patient had recently been referred to Dr. Hernandez for new diagnosis of atrial fibrillation and was at the office today for an echocardiogram when it was found that her heart rate was in the 150s. Evaluation in the emergency department demonstrated tachycardia, A. fib with RVR on EKG, benign laboratory evaluation other than urinary tract infection by urinalysis, and a CTA that was negative for acute findings. Patient was provided a diltiazem bolus and started on a drip with reduction of her heart rate to the 120s. Was then referred to the hospitalist service for admission and management of the above-stated complaints and findings. Hospital Course Hospital Course: The patient was admitted to [facility] on continuous cardiac telemetry. She initially required a diltiazem drip to obtain rate control and then was transitioned to p.o. diltiazem. Dosing was adjusted, but ultimately the patient required the addition of p.o. digoxin to maintain rate control. She had previously spoken with her parking lot laborer about chronic anticoagulation; she was started on Eliquis. Her remaining antihypertensive regiment of losartan atenolol and furosemide were continued. Did discuss with the patient that she has evidence of underlying diastolic CHF (elevated proBNP, borderline cardiomegaly) and that the echocardiogram done at her parking lot laborer's office would be able to provide further assistance. The patient did require supplemental oxygen while ambulatory. Arrangements have been made for the patient to receive oxygen prior to discharge. The patient was also incidentally found to have urinary tract infection. She initially received IV Rocephin and has been transitioned to p.o. Cipro for completion of her antibiotic course of therapy. At time of discharge, the patient is in stable condition. She is instructed to follow-up with her primary care provider within 1 week. She is advised to keep her previously established appointment with Dr. Smith. She is educated on a consistent carb and cardiac diet. She is advised her medications as prescribed. She is encouraged to return to the emergency department as needed for concerning symptoms. Physical Exam Vital Signs: Temp Pulse Resp BP Pulse Ox 98.3 F 64 17 120/80 98 05/24/19 11:49 05/24/19 11:49 05/24/19 11:49 05/24/19 11:49 05/24/19 11:49 Intake & Output 05/23/19 05/24/19 05/25/19 06:59 06:59 06:59 Intake Total 820 2364 Output Total 900 0 Balance -80 2364 Weight 110.2 kg General appearance: PRESENT: no acute distress, cooperative, morbidly obese, well-developed, well-nourished Head exam: PRESENT: atraumatic, normocephalic Eye exam: PRESENT: conjunctiva pink, EOMI, PERRLA. ABSENT: scleral icterus Ear exam: PRESENT: normal external ear exam Mouth exam: PRESENT: moist, tongue midline Respiratory exam: PRESENT: clear to auscultation aldair, symmetrical, unlabored, other - Supplemental oxygen by nasal cannula. ABSENT: rales, rhonchi, wheezes Cardiovascular exam: PRESENT: irregular rhythm, +S1, +S2. ABSENT: diastolic murmur, rubs, systolic murmur Pulses: PRESENT: normal dorsalis pedis pul Vascular exam: PRESENT: normal capillary refill GI/Abdominal exam: PRESENT: normal bowel sounds, soft. ABSENT: distended, guarding, mass, organolmegaly, rebound, tenderness Rectal exam: PRESENT: deferred Extremities exam: PRESENT: full ROM. ABSENT: calf tenderness, clubbing, pedal edema Musculoskeletal exam: PRESENT: ambulatory Neurological exam: PRESENT: alert, awake, oriented to person, oriented to place, oriented to time, oriented to situation, CN II-XII grossly intact. ABSENT: motor sensory deficit Psychiatric exam: PRESENT: appropriate affect, normal mood. ABSENT: homicidal ideation, suicidal ideation Skin exam: PRESENT: dry, intact, warm. ABSENT: cyanosis, rash Results Laboratory Results: WBC 6.0 10^3/uL (4.0-10.5) 05/22/19 06:03 RBC 5.10 10^6/uL (3.72-5.28) 05/22/19 06:03 Hgb 14.8 g/dL (12.0-15.5) 05/22/19 06:03 Hct 44.5 % (36.0-47.0) 05/22/19 06:03 MCV 87 fl (80-97) 05/22/19 06:03 MCH 28.9 pg (27.0-33.4) 05/22/19 06:03 MCHC 33.2 g/dL (32.0-36.0) 05/22/19 06:03 RDW 14.0 % (11.5-14.0) 05/22/19 06:03 Plt Count 134 10^3/uL (150-450) L 05/22/19 06:03 Lymph % (Auto) 20.1 % (13-45) 05/22/19 06:03 [place] % (Auto) 10.2 % (3-13) 05/22/19 06:03 Eos % (Auto) 1.9 % (0-6) 05/22/19 06:03 Baso % (Auto) 0.7 % (0-2) 05/22/19 06:03 Absolute Neuts (auto) 4.0 10^3/uL (1.7-8.2) 05/22/19 06:03 Absolute Lymphs (auto) 1.2 10^3/uL (0.5-4.7) 05/22/19 06:03 Absolute Monos (auto) 0.6 10^3/uL (0.1-1.4) 05/22/19 06:03 Absolute Eos (auto) 0.1 10^3/uL (0.0-0.6) 05/22/19 06:03 Absolute Basos (auto) 0.0 10^3/uL (0.0-0.2) 05/22/19 06:03 Seg Neutrophils % 67.1 % (42-78) 05/22/19 06:03 Sodium 143.6 mmol/L (137-145) 05/23/19 05:11 Potassium 4.7 mmol/L (3.6-5.0) 05/23/19 05:11 Chloride 108 mmol/L (98-107) H 05/23/19 05:11 Carbon Dioxide 24 mmol/L (22-30) 05/23/19 05:11 Anion Gap 12 (5-19) 05/23/19 05:11 BUN 24 mg/dL (7-20) H 05/23/19 05:11 Creatinine 0.96 mg/dL (0.52-1.25) 05/23/19 05:11 Est GFR ( Amer) > 60 (>60) 05/23/19 05:11 Est GFR (MDRD) Non-Af 57 (>60) L 05/23/19 05:11 Glucose 214 mg/dL (75-110) H 05/23/19 05:11 POC Glucose 159 mg/dL (70-110) H 05/24/19 11:47 Calcium 9.6 mg/dL (8.4-10.2) 05/23/19 05:11 Magnesium 2.1 mg/dL (1.6-2.3) 05/21/19 12:25 Total Bilirubin 0.7 mg/dL (0.2-1.3) 05/21/19 12:25 Direct Bilirubin 0.2 mg/dL (0.0-0.4) 05/21/19 12:25 Neonat Total Bilirubin Not Reportable 05/21/19 12:25 Neonat Direct Bilirubin Not Reportable 05/21/19 12:25 Neonat Indirect Bili Not Reportable 05/21/19 12:25 AST 65 U/L (14-36) H 05/21/19 12:25 ALT 70 U/L (<35) 05/21/19 12:25 Alkaline Phosphatase 78 U/L (38-126) 05/21/19 12:25 Troponin I < 0.012 ng/mL 05/21/19 12:25 NT-Pro-B Natriuret Pep 1730 pg/mL (<125) H 05/21/19 12:25 Total Protein 7.0 g/dL (6.3-8.2) 05/21/19 12:25 Albumin 4.2 g/dL (3.5-5.0) 05/21/19 12:25 TSH 2.46 uIU/mL (0.47-4.68) 05/22/19 06:03 Urine Color DARK YELLOW 05/21/19 14:20 Urine Appearance SLIGHTLY-CLOUDY 05/21/19 14:20 Urine pH 6.0 (5.0-9.0) 05/21/19 14:20 Ur Specific [place] 1.056 05/21/19 14:20 Urine Protein 100 mg/dL (NEGATIVE) H 05/21/19 14:20 Urine Glucose (UA) NEGATIVE mg/dL (NEGATIVE) 05/21/19 14:20 Urine Ketones NEGATIVE mg/dL (NEGATIVE) 05/21/19 14:20 Urine Blood LARGE (NEGATIVE) H 05/21/19 14:20 Urine Nitrite NEGATIVE (NEGATIVE) 05/21/19 14:20 Urine Bilirubin NEGATIVE (NEGATIVE) 05/21/19 14:20 Urine Urobilinogen NEGATIVE mg/dL (<2.0) 05/21/19 14:20 Ur Leukocyte Esterase MODERATE (NEGATIVE) H 05/21/19 14:20 Urine WBC (Auto) 58 /HPF 05/21/19 14:20 Urine RBC (Auto) >182 /HPF 05/21/19 14:20 Squamous Epi Cells Auto 1 /HPF 05/21/19 14:20 Urine Mucus (Auto) OCC /LPF 05/21/19 14:20 Urine Ascorbic Acid NEGATIVE (NEGATIVE) 05/21/19 14:20 05/21/19 12:25 Troponin I < 0.012 NT-Pro-B Natriuret Pep 1730 H Impressions: Chest X-Ray 05/21/19 11:48 IMPRESSION: Right basilar atelectasis Chest/Abdomen CTA 05/21/19 12:24 IMPRESSION: 1. Negative examination for pulmonary embolism. 2. There is a bandlike although somewhat nodular opacity of the lingula measuring approximately 9 mm in short axis (series 3, image 51). This may reflect scarring or atelectasis. Recommend follow-up CT in 3 months to ensure stability or resolution. 3. There is a large calculus, partially imaged within the left renal pelvis measuring at least 1.2 cm (series 3, image 121). Plan Plan of Treatment: Discharge to home with supplemental oxygen. Follow-up with primary care provider within 1 week. Keep scheduled appointment with Dr. Smith. Echocardiogram completed at Dr. Smith's office this week. He is a consistent carb and cardiac diet. Take her medications as prescribed. Finish antibiotic therapy for treatment of UTI. Weigh daily and report any weight gain of greater than 2 pounds to provider. Return to emergency department as needed for concerning symptoms. Time Spent: Greater than 30 Minutes Stroke Is this a Stroke Patient?: No Acute Heart Failure - Is this a Heart Failure Patient?: Yes Documentation of LVEF assessment?: Planned for after discharge LVEF < 40%?: No- if no continue to question #3 3. Anticoagulant therapy for permanect/persistent/paraoxysmal Afib or Aflutter: Yes Follow-up Appointment scheduled within 7 days?: Yes
== END 2019-05-24 14:40 | disposition home or self-care (01) | DRG 309 ==
LOC: ER 11:45 → INTOOBSV 14:41 → EH 14:41 → 3W 15:48 → OBSVTOIN 05-23 15:00
PROVIDERS: ADMIT Internal Medicine; ATTEND Internal Medicine
DX: I48.91 Unspecified atrial fibrillation (principal); Z68.42 Body mass index [BMI] 45.0-49.9, adult; I50.30 Unspecified diastolic (congestive) heart failure; E11.8 Type 2 diabetes mellitus with unspecified complications; I11.0 Hypertensive heart disease with heart failure; E78.5 Hyperlipidemia, unspecified; E66.01 Morbid (severe) obesity due to excess calories; Z60.2 Problems related to living alone; Z79.84 Long term (current) use of oral hypoglycemic drugs; Z79.82 Long term (current) use of aspirin; Z79.899 Other long term (current) drug therapy
CPT/HCPCS: 36415; 71045; 71275; 80048; 80053; 81001; 82962; 83735; 83880; 84443; 84484; 85025; 87086; 93005; 93010; 96374; 99285; G0378; J0696; J1160; J1815; J3490; J7030

== ENCOUNTER 2019-08-15 10:15 | Emergency (ER) | payer MEDICARE, BC ==
[2019-08-15 10:43] LABS: ABSOLUTE EOSINOPHILS # (AUTO) 0.1 10^3/uL (0.0-0.6); ABSOLUTE LYMPHOCYTES (AUTO) 0.7 10^3/uL (0.5-4.7); ABSOLUTE MONOCYTES (AUTO) 0.5 10^3/uL (0.1-1.4); TOTAL CELLS COUNTED % (AUTO) 100 %
[2019-08-15 10:45] LABS: PROTHROMBIN TIME 15.3 SEC (11.4-15.4)
[2019-08-15 10:52] LABS: BASOPHILS % (AUTO) 0.5 % (0-2); EOSINOPHILS % (AUTO) 0.7 % (0-6); HEMATOCRIT 40.4 % (36.0-47.0); HEMOGLOBIN 13.4 g/dL (12.0-15.5); LYMPHOCYTES % (AUTO) 8.1 % (13-45); MEAN CORPUSCULAR HGB CONC 33.2 g/dL (32.0-36.0); MEAN CORPUSCULAR VOLUME 88 fl (80-97); MONOCYTES % (AUTO) 4.9 % (3-13); PLATELET COUNT 171 10^3/uL (150-450); RED BLOOD COUNT 4.62 10^6/uL (3.72-5.28); RED CELL DISTRIBUTION WIDTH 14.1 % (11.5-14.0); SEGMENTED NEUTROPHILS % (AUTO) 85.8 % (42-78); WHITE BLOOD COUNT 9.3 10^3/uL (4.0-10.5)
[2019-08-15] MEDS ORDERED: DEXTROSE 5%-WATER 250 ML with NOREPINEPHRINE BITARTRATE 4 MG IV PRN ×2 (10:58)
--- NOTE | 2019-08-15 11:12 | ER Document Report ---
ED General - General Chief Complaint: Cardiac Arrest Stated Complaint: POSSIBLE CARDIAC ARREST Time Seen by Provider: 08/15/19 10:18 Primary Care Provider: FARHAT NOBLE MD [NO LOCAL MD] - Follow up as needed Mode of Arrival: Medic Information source: Patient Notes: This 73-year-old woman presents to the emergency department with a history of post arrest. Apparently EMS was called to the home found the patient to be in respiratory distress, she became unresponsive and pulseless. Patient was intubated and CPR performed, after epinephrine the patient return of pulse. Has a history of atrial fibrillation, no history of chest pain, hypertension, diabetes mellitus, and morbid obesity. Patient was given rocuronium, ketamine in the transport prior to intubation, this was a witnessed arrest, notes that the patient had a pink frothy fluid coming from the ET tube was placed. TRAVEL OUTSIDE OF THE [place] IN LAST 30 DAYS: No - Related Data Allergies/Adverse Reactions: amoxicillin trihydrate [From Augmentin] Allergy (Unknown, Verified 05/21/19 12:00) Potassium Clavulanate * [From Augmentin] Allergy (Unknown, Verified 05/21/19 12:00) Past Medical History - Social History Smoking Status: Unknown if Ever Smoked Family History: Reviewed & Not Pertinent Patient has suicidal ideation: No - unable to answer Patient has homicidal ideation: No - unable to answer - Past Medical History Cardiac Medical History: Reports: Hx Atrial Fibrillation, Hx Hypertension Endocrine Medical History: Reports: Hx Diabetes Mellitus Type 2 Malignancy Medical History: Reports: Hx Breast Cancer Past Surgical History: Reports: Hx Appendectomy, Hx Hysterectomy - Immunizations Hx Diphtheria, Pertussis, Tetanus Vaccination: Yes Review of Systems - Review of Systems -: Yes ROS unobtainable due to patient's medical condition - Patient is intubated and unresponsive Physical Exam - Vital signs Vitals: Resp Pulse Ox 23 H 98 08/15/19 10:20 08/15/19 10:20 - Notes Notes: PHYSICAL EXAMINATION: Physical Exam: General: Intubated 73-year-old morbidly obese female HEENT: NC/AT, pupils equal round and reactive to light, MM moist,nares clear, + pink frothy fluid in the ET tube Neck: supple, no adenopathy, no masses. Lungs: clear, few scattered rhonchi and rales bilaterally CVS: Regular rate and rhythm no murmur gallop or rub Abdomen: Soft active nontender, no masses, no hepatosplenomegaly Ext: No edema clubbing or cyanosis. Neuro: Unresponsiveness, ET tube in place Skin: Intact no open lesions, no rash Course - Re-evaluation Re-evalutation: 08/15/19 11:14 Patient is continued on Levophed through a peripheral IV, will put a central line in due to poor peripheral access and IV vasopressor. 08/15/19 14:50 Patient continues to have ice packs were applied early on in her care and now on a cooling blanket. The intensive this at [facility] was contacted, , he will accept the patient in transfer. - Vital Signs Vital signs: Temp Pulse Resp BP Pulse Ox 98.5 F 15 130/50 H 100 08/15/19 14:26 08/15/19 14:46 08/15/19 14:46 08/15/19 14:46 - Laboratory Result Diagrams: 08/15/19 10:25 08/15/19 12:15 Laboratory results interpreted by me: 08/15/19 08/15/19 08/15/19 10:25 10:55 12:15 RDW 14.1 H Lymph % (Auto) 8.1 L Seg Neutrophils % 85.8 H Carbonic Acid ABG pH ABG pCO2 ABG pO2 ABG HCO3 ABG Total CO2 Glucose 401 H* AST 132 H ALT 59 H NT-Pro-B Natriuret Pep Urine Protein >=500 H Urine Glucose (UA) >=500 H Urine Blood LARGE H 08/15/19 08/15/19 12:15 12:46 RDW Lymph % (Auto) Seg Neutrophils % Carbonic Acid 1.45 H ABG pH 7.34 L ABG pCO2 48.3 H ABG pO2 110.9 H ABG HCO3 25.7 H ABG Total CO2 27.2 H Glucose AST ALT NT-Pro-B Natriuret Pep 530 H Urine Protein Urine Glucose (UA) Urine Blood - Diagnostic Test Radiology reviewed: Pending - Chest x-ray: ET tube into the right bronchus tube was pulled back about 1.5 cm Chest x-ray status post central line placement the line is in good position., Image reviewed, Reports reviewed - EKG Interpretation by Me EKG shows normal: Sinus rhythm - Rate of 79, low voltage throughout, borderline prolonged QT interval. No acute ST or T wave abnormalities noted. Procedures - Central Line Right Internal jugular Time completed: 11:49 Consent obtained: No - Medical necessity paperwork was completed. Central line pre-insertion: Sterile PPE donned, Chloraprep applied, Sterile drapes applied Central line lumen type: Triple Anesthetic type: 1% Lidocaine - 3 mL's mL's of anesthesia: 3 Ultrasound guided: Yes Line secured with sutures: Yes Central line post-insertion: Blood return from lumens, Biopatch applied, Sutured, Sterile dressing applied, Position confirmed w/ CXR Number of attempts: 1 Complications: No Critical Care Note - Critical Care Note Total time excluding time spent on procedures (mins): 60 - Critical care time spent obtaining history from patient or surrogate, discussions with consultants, development of treatment plan with patient or surrogate, evaluation of patient's response to treatment, examination of patient, ordering and performing treatments and interventions, ordering and review of laboratory studies, re- evaluation of patient's condition, ordering and review of radiographic studies and review of old charts Discharge - Discharge Clinical Impression: Cardiopulmonary arrest with successful resuscitation, Elevated troponin I level Congestive heart failure Qualifiers: Heart failure type: unspecified Heart failure chronicity: acute Qualified Code(s): I50.9 - Heart failure, unspecified Diabetes Qualifiers: Diabetes mellitus type: type 2 Diabetes mellitus manager intermediate insulin use: without senior care use Diabetes mellitus complication status: with other specified complication Qualified Code(s): E11.69 - Type 2 diabetes mellitus with other specified complication Disposition: [facility] Referrals: FARHAT NOBLE MD [NO LOCAL MD] - Follow up as needed
--- NOTE | 2019-08-15 11:20 | RADIOLOGY REPORT (SQ) ---
EXAM DESCRIPTION: CHEST SINGLE VIEW COMPLETED DATE/TIME: 08/15/2019 10:47 am REASON FOR STUDY: post intubation COMPARISON: 05/21/2019 FINDINGS: One view chest AP portable supine. Endotracheal tube in place, grossly appropriate. Nasogastric tube down, side hole in the distal esophagus. Please advance slightly. Edema/infiltrates in the upper lung [place] predominantly. TECHNICAL DOCUMENTATION: JOB ID: [id number] Reading location - IP/workstation name: [email or web address]
[2019-08-15 11:24] LABS: APPEARANCE,URINE SLIGHTLY-CLOUDY; BILIRUBIN,URINE NEGATIVE (NEGATIVE); CALCIUM OXALATE CRYSTALS,URINE RARE /HPF; COLOR,URINE YELLOW; GLUCOSE, URINE >=500 mg/dL (NEGATIVE); KETONES,URINE NEGATIVE (NEGATIVE); LEUKOCYTE ESTERASE,URINE NEGATIVE (NEGATIVE); NITRITE,URINE NEGATIVE (NEGATIVE); PROTEIN,URINE >=500 mg/dL (NEGATIVE); URINE SPECIFIC GRAVITY 1.014; UROBILINOGEN,URINE NEGATIVE mg/dL (<2.0)
--- NOTE | 2019-08-15 12:20 | RADIOLOGY REPORT (SQ) ---
EXAM DESCRIPTION: CHEST SINGLE VIEW COMPLETED DATE/TIME: 08/15/2019 12:09 pm REASON FOR STUDY: Post central line placement COMPARISON: 08/15/2019 at 1027 hours. EXAM PARAMETERS: NUMBER OF VIEWS: One view. TECHNIQUE: Single frontal radiographic view of the chest acquired. RADIATION DOSE: NA LIMITATIONS: None. FINDINGS: LUNGS AND PLEURA: Hazy airspace disease, particularly in the right upper lobe. No pneumot horax. MEDIASTINUM AND HILAR STRUCTURES: No masses. Contour normal. HEART AND VASCULAR STRUCTURES: Mild cardiac enlargement. BONES: No acute findings. HARDWARE: Central line on the right side. Tip at the level of the superior vena cava. Stable endotr acheal tube and nasogastric tube. The side hole of the nasogastric tube is at the level of the gastr oesophageal junction. OTHER: No other significant finding. IMPRESSION: SATISFACTORY APPEARANCE OF THE CENTRAL LINE WITH NO PNEUMOTHORAX. OTHERWISE NO CHANGE. TECHNICAL DOCUMENTATION: JOB ID: [id number] 2010 [employer]- All Rights Reserved Reading location - IP/workstation name: [email or web address]
[2019-08-15] MEDS ORDERED: FUROSEMIDE INJ/PF 20 MG/2 ML SDV IV ONE (12:53)
[2019-08-15 12:55] LABS: ALBUMIN 3.8 g/dL (3.5-5.0); ALKALINE PHOSPHATASE 92 U/L (38-126); ANION GAP 12 (5-19); ASPARTATE AMINO TRANSFERASE 132 U/L (14-36); BILIRUBIN,DIRECT 0.2 mg/dL (0.0-0.4); BILIRUBIN,TOTAL 0.7 mg/dL (0.2-1.3); BLOOD UREA NITROGEN 18 mg/dL (7-20); CALCIUM 9.2 mg/dL (8.4-10.2); CARBON DIOXIDE 28 mmol/L (22-30); CHLORIDE 100 mmol/L (98-107); CREATINE KINASE 87 U/L (30-135); POTASSIUM 4.9 mmol/L (3.6-5.0); TOTAL PROTEIN 6.8 g/dL (6.3-8.2)
[2019-08-15 13:04] LABS: GLUCOSE 401 mg/dL (75-110)
[2019-08-15 13:05] LABS: ARTERIAL BLOOD BASE EXCESS -0.6 mmol/L; ARTERIAL BLOOD FIO2 100%; ARTERIAL BLOOD H2CO3 1.45 mmol/L (1.05-1.35); ARTERIAL BLOOD HCO3 25.7 mmol/L (20-24); ARTERIAL BLOOD O2 SATURATION 97.8 % (94-98); ARTERIAL BLOOD PCO2 48.3 mmHg (35-45); ARTERIAL BLOOD PH 7.34 (7.35-7.45); ARTERIAL BLOOD PO2 110.9 mmHg (80-100); ARTERIAL BLOOD TOTAL CO2 27.2 mmol/L (21-25)
[2019-08-15 13:07] LABS: CREATINE KINASE MB 2.91 ng/mL (<4.55)
[2019-08-15 13:14] LABS: TROPONIN I 0.034 ng/mL
--- NOTE | 2019-08-15 14:29 | EKG REPORT ---
SEVERITY:- BORDERLINE ECG - SINUS RHYTHM LOW VOLTAGE THROUGHOUT BORDERLINE PROLONGED QT INTERVAL : Confirmed by: Raman Nelson MD 15-Aug-2019 14:29:03
[2019-08-15 15:33] VITALS: BP 113/62
== END 2019-08-15 15:34 | disposition short-term general hospital (02) ==
LOC: ER 10:15
DX: I46.9 Cardiac arrest, cause unspecified (principal); I50.9 Heart failure, unspecified; E11.8 Type 2 diabetes mellitus with unspecified complications; R79.89 Other specified abnormal findings of blood chemistry; Z88.0 Allergy status to penicillin; Z85.3 Personal history of malignant neoplasm of breast
CPT/HCPCS: 93005; 36415; 82553; 82803; 82550; 85025; 85610; 80053; 81001; 84484; 83880; 71045; 93010; 36680; J1940; J3490; J7060; 36600; 96365; 96375; 99291